=== PATIENT | male | born 1945 | race Caucasian/White ===

== ENCOUNTER 2018-06-25 11:45 | Inpatient (IN) | payer OTHER | END 2018-06-27 15:57 | disposition home health service (06) | LOC: DAHIP 11:45 → 4AH 17:47 | PROC: 0SRC0J9 Replacement of Right Knee Joint with Synthetic Substitute, Cemented, Open Approach (ICD-10-PCS; principal; 2018-06-25 14:07) | DX: M17.11 Unilateral primary osteoarthritis, right knee (principal) ==

== ENCOUNTER 2019-08-29 13:29 | Emergency (ER) | payer OTHER ==
[~2019-08-29 13:29] MED LIST: ASPI-1012 PO; CYANOCOBALAMIN PO; EZET10TA13 PO; HYDR-4457 PO; METO-391 PO; ROSU40TA21 PO; UBID200C37 PO
[2019-08-29 14:10] LABS: BASOPHILS % (AUTO) 0.2 % (0.0-5.0); HEMATOCRIT 46.6 % (42-54); LYMPHOCYTES % (AUTO) 11.3 % (21.0-51.0); MEAN CORPUSCULAR HEMOGLOBIN 29.5 pg (27.0-33.0); MEAN CORPUSCULAR HGB CONC 34.5 g/dL (32.0-36.0); MEAN CORPUSCULAR VOLUME 85.5 fL (79-99); MONOCYTES % (AUTO) 5.5 % (3.0-13.0); NEUTROPHILS % (AUTO) 82.5 % (40.0-77.0); PLATELET COUNT (AUTO) 224 K/uL (130-400); RED BLOOD CELL COUNT(AUTO) 5.45 MIL/uL (4.50-6.20); RED CELL DISTRIBUTION WIDTH 11.9 % (11.0-15.5); WHITE BLOOD COUNT (AUTO) 13.2 K/uL (4.8-10.8)
[2019-08-29 14:14] LABS: CREATININE 1.4 mg/dL (0.5-1.5); POTASSIUM 4.2 mmol/L (3.5-5.1)
[2019-08-29 14:15] LABS: INR 0.95 (0.85-1.15); PARTIAL THROMBOPLASTIN TIME 25.2 SEC (26.3-35.5); PROTHROMBIN TIME 10.3 SEC (9.6-11.6)
[2019-08-29 14:19] LABS: ALBUMIN 4.1 g/dL (3.5-5.0); BILIRUBIN,TOTAL 0.5 mg/dL (0.2-1.0); TOTAL PROTEIN, SERUM 7.8 g/dL (6.0-8.3)
[2019-08-29] MEDS ORDERED: ONDANSETRON HCL 4 MG/2 ML VIAL ONE (14:24)
[2019-08-29] MEDS ORDERED: MORPHINE SULFATE 4 MG/1ML SYG ONE ×2 (14:24→16:10)
[2019-08-29] MEDS ORDERED: SODIUM CHLORIDE 0.9% 1000ML 1,000 ML IV ONE (14:24)
[2019-08-29 16:58] LABS: APPEARANCE,URINE Clear (CLEAR); BILIRUBIN,URINE Negative (NEGATIVE); COLOR,URINE Yellow (YELLOW); GLUCOSE, URINE (UA) Negative (NEGATIVE); KETONES,URINE Trace mg/dL (NEGATIVE); LEUKOCYTE ESTERASE ,URINE Negative (NEGATIVE); NITRATE,URINE Negative (NEGATIVE); OCCULT BLOOD,URINE Negative (NEGATIVE); PROTEIN,URINE POS 1+ mg/dL (NEGATIVE)
[2019-08-29 17:10] LABS: BACTERIA,URINE Rare /HPF (None Seen); RBC,URINE 0-1 /HPF (0-1)
[2019-08-29 17:11] LABS: MUCUS,URINE Moderate LPF (None Seen); SQUAMOUS EPITHELIAL CELL,UR Few /HPF (0-2)
== END 2019-08-29 17:55 | disposition home or self-care (01) ==
LOC: EDH 13:29
DX: R10.84 Generalized abdominal pain (principal); E78.00 Pure hypercholesterolemia, unspecified; Z87.891 Personal history of nicotine dependence
CPT/HCPCS: 36415; 74176; 80053; 81001; 82550; 83690; 84484; 85025; 85610; 85730; 93005; 96374; 96375; 96376; 99285; J2270 ×2; J2405; J7030

== ENCOUNTER 2022-12-02 02:21 | Emergency (ER) | payer OTHER ==
[~2022-12-02] VITALS: Ht 175.3 cm; Wt 98.9 kg
[2022-12-02 03:22] LABS: BASOPHILS # (AUTO) 0.03 K/uL (0.00-0.20); BASOPHILS % (AUTO) 0.2 % (0.0-5.0); EOSINOPHILS # (AUTO) 0.01 K/uL (0.00-0.70); EOSINOPHILS % (AUTO) 0.1 % (0.0-8.0); HEMATOCRIT 38.7 % (42-54); IMMATURE GRANULOCYTE ABSOLUTE 0.06 K/uL (0-1); LYMPHOCYTES # (AUTO) 1.7 K/uL (1.0-4.8); LYMPHOCYTES % (AUTO) 12.2 % (21.0-51.0); MEAN CORPUSCULAR HEMOGLOBIN 29.8 pg (27.0-33.0); MEAN CORPUSCULAR HGB CONC 34.6 g/dL (32.0-36.0); MONOCYTES # (AUTO) 1.2 K/uL (0.1-1.0); MONOCYTES % (AUTO) 8.4 % (3.0-13.0); NEUTROPHILS # (AUTO) 10.8 K/uL (1.8-7.7); NEUTROPHILS % (AUTO) 78.7 % (40.0-77.0); PLATELET COUNT (AUTO) 244 K/uL (130-400); RED CELL DISTRIBUTION WIDTH 12.1 % (11.0-15.5); WHITE BLOOD COUNT (AUTO) 13.7 K/uL (4.8-10.8)
[2022-12-02 03:24] LABS: APPEARANCE,URINE CLEAR (CLEAR); BILIRUBIN,URINE NEGATIVE (NEGATIVE); COLOR,URINE LIGHT-YELLOW (YELLOW); GLUCOSE, URINE (UA) NEGATIVE (NEGATIVE); KETONES,URINE NEGATIVE (NEGATIVE); LEUKOCYTE ESTERASE ,URINE NEGATIVE Leu/uL (NEGATIVE); NITRATE,URINE NEGATIVE (NEGATIVE); OCCULT BLOOD,URINE LARGE (NEGATIVE); PROTEIN,URINE 20 mg/dL (NEGATIVE); UROBILINOGEN,URINE 0.2 mg/dL (0.2-1.0)
[2022-12-02 03:26] LABS: ADD UA MICROSCOPIC YES
[2022-12-02] MEDS ORDERED: MORPHINE 2 MG SYG IVP ONE ×2 (03:30)
[2022-12-02] MEDS ORDERED: ONDANSETRON 4MG INJ IVP ONE (03:30)
[2022-12-02] MEDS ORDERED: 0.9%NACL 1000ML 1,000 ML IV ONE (03:30)
[2022-12-02 03:31] LABS: BACTERIA,URINE RARE /HPF (None Seen); MUCUS,URINE RARE LPF (None Seen); RBC,URINE TNTC /HPF (0-1)
[2022-12-02 03:33] LABS: CREATININE 1.2 mg/dL (0.5-1.5); POTASSIUM 3.8 mmol/L (3.5-5.1)
[2022-12-02 03:37] LABS: ALBUMIN 3.5 g/dL (3.5-5.0); BILIRUBIN,TOTAL 0.6 mg/dL (0.2-1.0); TOTAL PROTEIN, SERUM 7.3 g/dL (6.0-8.3)
[2022-12-02] MEDS ORDERED: TAMS-1 PO (05:48)
[2022-12-02] MEDS ORDERED: IBUP-1493 PO (05:48)
[2022-12-02] MEDS ORDERED: TRAM50TA4 PO (05:48)
[2022-12-02] MEDS ORDERED: HYDROMORPHONE 1 MG INJ ONE (06:17)
[2022-12-02] MEDS ORDERED: ACETAMINOPHEN 500 MG TABLET ONE (06:29)
[2022-12-02] MEDS ORDERED: HYDROMORPHONE 1 MG INJ IVP ONE (06:30)
[2022-12-02] MEDS ORDERED: CEFTRIAXONE 2GM VIAL ONE (06:31)
[2022-12-02 06:39] VITALS: TEMP 100.9
[2022-12-02] MEDS ORDERED: 0.9%NACL 1000ML 2,000 ML IV SCH (07:00)
[2022-12-02] MEDS ORDERED: ACETAMINOPHEN 500 MG TABLET PO ONE (07:00)
[2022-12-02] MEDS ORDERED: CEFTRIAXONE 2GM VIAL IVPB ONE (07:00)
[2022-12-02] MEDS ORDERED: APIX5TAB PO (07:15)
[2022-12-02] MEDS ORDERED: SOTA80TA PO (07:16)
[2022-12-02] MEDS ORDERED: DILTIAZEM 125 MG/25 ML INJ 125 MG in 0.9%NACL 100ML 100 ML IV SCH (08:00)
[2022-12-02] MEDS ORDERED: DILTIAZEM 25MG INJ IVP ONE (08:00)
[2022-12-02 13:05] VITALS: BP 120/79; PULSE 108; RESP 16; O2SAT 97
== END 2022-12-02 07:44 | disposition short-term general hospital (02) ==
LOC: EDH 02:21
DX: N20.0 Calculus of kidney (principal); N39.0 Urinary tract infection, site not specified; I48.91 Unspecified atrial fibrillation; E78.00 Pure hypercholesterolemia, unspecified; I10 Essential (primary) hypertension; Z79.1 Long term (current) use of non-steroidal anti-inflammatories (NSAID); Z79.82 Long term (current) use of aspirin
CPT/HCPCS: 99285; 74176; 96365; 96367 ×2; 96375; 80053; 83690; 85025; 81001; 36415; 96376; 93005; J1170; J2270 ×2; J0696; J3490 ×2; J2405

== ENCOUNTER 2024-07-15 22:39 | Emergency (ER) | payer OTHER, MEDICARE ==
[~2024-07-15] VITALS: Ht 175.3 cm; Wt 94.3 kg
[~2024-07-15 22:39] MED LIST changes: +APIX5TAB PO; -EZET10TA13 PO; +EZET10TA81 PO; -HYDR-4457 PO; +IBUP-1493 PO; -METO-391 PO; -ROSU40TA21 PO; +ROSU40TA88 PO; +SOTA80TA PO; +TAMS-55 PO; +TRAM50TA4 PO
--- NOTE | 2024-07-15 22:50 | NUR ---
patient took tramadol at home at 3pm and again at 9 pm. patient takes eliquis but did not bring any of his medications
--- NOTE | 2024-07-15 22:55 | NUR ---
director of corporate sales called to check on orders for patient. cytotechnologist/histotechnologist updated on patients concerns, patient reports patient cannot have any xrays or radiology exams due to pacemaker. ER physician present and aware of concern. ER physician given Dr Steele phone number if needed
[2024-07-15 23:26] VITALS: BP 151/89; PULSE 72; RESP 16; TEMP 98; O2SAT 96
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
[2024-07-16 00:02] LABS: INR 1.13 (0.85-1.15); PROTHROMBIN TIME 11.8 SEC (9.6-11.6)
[2024-07-16] MEDS: ketOROlac 15MG/ML VIAL (15MG/ML) IV ONE (00:04)
[2024-07-16] MEDS: CYCLOBENZAPRINE HCL 10 MG TABLET PO ONE (00:04)
[2024-07-16] MEDS ORDERED: CYCL15CA23 PO (00:51)
== END 2024-07-16 01:25 | disposition home or self-care (01) ==
LOC: EDH 22:39
DX: S80.812A Abrasion, left lower leg, initial encounter (principal); Z79.01 Long term (current) use of anticoagulants; Z79.1 Long term (current) use of non-steroidal anti-inflammatories (NSAID); Z79.82 Long term (current) use of aspirin; Z79.899 Other long term (current) drug therapy; Z95.810 Presence of automatic (implantable) cardiac defibrillator; W51.XXXA Accidental striking against or bumped into by another person, initial encounter; Y93.01 Activity, walking, marching and hiking; Y92.89 Other specified places as the place of occurrence of the external cause; Y99.8 Other external cause status
CPT/HCPCS: 99283; 85610; 36415; 96374; J1885